=== PATIENT | female | born 1940 | race Asian ===

== ENCOUNTER 2017-09-10 10:15 | Day surgery (SDC) | payer MEDICARE, OTHER ==
[~2017-09-10] VITALS: Ht 154.9 cm; Wt 63.2 kg
[~2017-09-10 10:15] MED LIST: GINK40TA PO; GLUC15006 PO; OMEG10005 PO; OMEG1CAP6 PO; SIMV-261 PO; TELM40 PO
[2017-09-10] MEDS ORDERED: MIDAZOLAM HCL 2 MG/2 ML VIAL IVP ONE (10:16)
[2017-09-10] MEDS ORDERED: FentaNYL CITRATE-PF 100 MCG/2 ML VIAL IVP ONE (10:16)
[2017-09-10] MEDS ORDERED: DICLOFENAC SODIUM 0.1% 2.5 ML OPHTHALMIC SOLUTION OD ONE (10:30)
[2017-09-10] MEDS ORDERED: MOXIFLOXACIN HCL 0.5% 3 ML OPHTHALMIC SOLUTION OD ONE (10:30)
[2017-09-10] MEDS ORDERED: RINGERS SOLUTION,LACTATED 500 ML IV ONE ×2 (10:30→10:38)
[2017-09-10] MEDS ORDERED: TROPICAMIDE 1% 2 ML OPHTHALMIC SOLUTION ONE (10:37)
[2017-09-10] MEDS ORDERED: PHENYLEPHRINE HCL 2.5% 2 ML OPHTHALMIC SOLUTION ONE (10:37)
[2017-09-10] MEDS ORDERED: DICLOFENAC SODIUM 0.1% 2.5 ML OPHTHALMIC SOLUTION ONE (10:37)
[2017-09-10] MEDS ORDERED: MOXIFLOXACIN HCL 0.5% 3 ML OPHTHALMIC SOLUTION ONE (10:37)
[2017-09-10] MEDS: TROPICAMIDE 1% 2 ML OPHTHALMIC SOLUTION OD SCH ×2 (11:18→11:23)
[2017-09-10] MEDS: PHENYLEPHRINE HCL 2.5% 2 ML OPHTHALMIC SOLUTION OD SCH ×2 (11:18→11:23)
[2017-09-10] MEDS ORDERED: TETRACAINE HCL VISCOUS 0.5% 0.6 ML OPHTHALMIC SOLUTION ONE (16:51)
[2017-09-10] MEDS ORDERED: DEXAMETHASONE 4 MG TABLET ONE (16:51)
[2017-09-10] MEDS ORDERED: POVIDONE-IODINE 10% 15 ML SOLUTION UD ONE (16:51)
[2017-09-10] MEDS ORDERED: HYALURONATE SOD/CHONDROITIN SOD 0.5 ML VIAL IO ONE (16:51)
[2017-09-10] MEDS ORDERED: LIDOCAINE HCL 1% 20 ML VIAL ONE (16:51)
[2017-09-10] MEDS ORDERED: HYALURONATE SODIUM 12 MG/ML 0.8 ML SYRINGE IO ONE (16:51)
== END 2017-09-10 13:20 | disposition home or self-care (01) ==
LOC: SURGERY 10:15
PROVIDERS: ATTEND Specialist
DX: H25.011 Cortical age-related cataract, right eye (principal); I10 Essential (primary) hypertension; M19.90 Unspecified osteoarthritis, unspecified site; E78.00 Pure hypercholesterolemia, unspecified; Z91.048 Other nonmedicinal substance allergy status; Z91.040 Latex allergy status; Z90.710 Acquired absence of both cervix and uterus; Z98.42 Cataract extraction status, left eye; Z98.890 Other specified postprocedural states; Z79.899 Other long term (current) drug therapy
CPT/HCPCS: 65785; 66984; 93005; C1780; J2250; J3010; J7120; J3490; J8540